=== PATIENT | female | born 1995 | race Hispanic/Latino ===

== ENCOUNTER 2021-08-22 02:18 | Emergency (ER) | payer SELFPAY ==
[~2021-08-22] VITALS: Ht 154.9 cm; Wt 131.5 kg
[2021-08-22 04:21] LABS: BASOPHILS % (AUTO) 0.5 % (0.0-5.0); EOSINOPHILS % (AUTO) 0.7 % (0.0-8.0); HEMATOCRIT 46.1 % (36-48); LYMPHOCYTES % (AUTO) 19.1 % (21.0-51.0); MEAN CORPUSCULAR HEMOGLOBIN 26.4 pg (27.0-33.0); MEAN CORPUSCULAR HGB CONC 31.7 g/dL (32.0-36.0); MEAN CORPUSCULAR VOLUME 83.5 fL (79-99); MONOCYTES % (AUTO) 7.5 % (3.0-13.0); NEUTROPHILS % (AUTO) 71.7 % (40.0-77.0); PLATELET COUNT (AUTO) 352 K/uL (130-400); RED BLOOD CELL COUNT(AUTO) 5.52 MIL/uL (4.00-5.50); RED CELL DISTRIBUTION WIDTH 13.9 % (11.0-15.5); WHITE BLOOD COUNT (AUTO) 9.9 K/uL (4.8-10.8)
[2021-08-22 04:24] LABS: APPEARANCE,URINE Turbid (CLEAR); BILIRUBIN,URINE Negative (NEGATIVE); COLOR,URINE Yellow (YELLOW); GLUCOSE, URINE (UA) Negative (NEGATIVE); KETONES,URINE Negative (NEGATIVE); LEUKOCYTE ESTERASE ,URINE Trace (NEGATIVE); NITRATE,URINE Negative (NEGATIVE); OCCULT BLOOD,URINE Negative (NEGATIVE); PH,URINE 8.5 (5.0-8.0); PROTEIN,URINE Trace mg/dL (NEGATIVE)
[2021-08-22 04:26] LABS: CREATININE 0.8 mg/dL (0.5-1.5); POTASSIUM 3.7 mmol/L (3.5-5.1)
[2021-08-22 04:30] LABS: BILIRUBIN,TOTAL 1.1 mg/dL (0.2-1.0); TOTAL PROTEIN, SERUM 8.2 g/dL (6.0-8.3)
[2021-08-22 04:34] LABS: RBC,URINE None Seen /HPF (0-1); WBC,URINE None Seen /HPF (0-1)
[2021-08-22 04:35] LABS: AMORPHOUS SEDIMENT,UR Many /LPF (None Seen); BACTERIA,URINE None Seen /HPF (None Seen); SQUAMOUS EPITHELIAL CELL,UR None Seen /HPF (0-2)
[2021-08-22] MEDS ORDERED: MORPHINE 2 MG SYG ONE (06:41)
[2021-08-22] MEDS ORDERED: ONDANSETRON 4MG INJ ONE (06:41)
[2021-08-22] MEDS ORDERED: ONDANSETRON 4MG INJ IVP ONE (07:00)
[2021-08-22] MEDS ORDERED: MORPHINE 2 MG SYG IVP ONE (07:00)
[2021-08-22 09:05] VITALS: BP 121/60
[2021-08-22] MEDS ORDERED: ONDA4TAB4 PO (09:42)
[2021-08-22] MEDS ORDERED: HYDR-4377 PO (09:42)
[2021-08-22] MEDS ORDERED: HYDR-4068 PO (11:51)
[2021-08-22] MEDS ORDERED: HYDR-4060 PO (11:51)
== END 2021-08-22 10:31 | disposition home or self-care (01) ==
LOC: EDH 02:18
DX: R10.11 Right upper quadrant pain (principal); R11.10 Vomiting, unspecified
CPT/HCPCS: 36415; 76705; 80053; 81001; 81025; 85025; 96374; 96375; 99284; J2405

== ENCOUNTER 2022-02-19 15:10 | Emergency (ER) | payer SELFPAY ==
[~2022-02-19] VITALS: Ht 167.6 cm; Wt 119.7 kg
[~2022-02-19 15:10] MED LIST: HYDR-4068 PO; HYDR-4377 PO; ONDA4TAB4 PO
[2022-02-19 15:40] LABS: BASOPHILS % (AUTO) 0.7 % (0.0-5.0); EOSINOPHILS % (AUTO) 2.2 % (0.0-8.0); HEMATOCRIT 46.9 % (36-48); LYMPHOCYTES % (AUTO) 40.7 % (21.0-51.0); MEAN CORPUSCULAR HEMOGLOBIN 26.7 pg (27.0-33.0); MEAN CORPUSCULAR HGB CONC 32.2 g/dL (32.0-36.0); MEAN CORPUSCULAR VOLUME 82.9 fL (79-99); MONOCYTES % (AUTO) 6.9 % (3.0-13.0); NEUTROPHILS % (AUTO) 49.1 % (40.0-77.0); PLATELET COUNT (AUTO) 337 K/uL (130-400); RED BLOOD CELL COUNT(AUTO) 5.66 MIL/uL (4.00-5.50); RED CELL DISTRIBUTION WIDTH 13.9 % (11.0-15.5); WHITE BLOOD COUNT (AUTO) 10.7 K/uL (4.8-10.8)
[2022-02-19 15:48] LABS: CREATININE 0.9 mg/dL (0.5-1.5); POTASSIUM 3.7 mmol/L (3.5-5.1)
[2022-02-19 15:53] LABS: ALBUMIN 3.5 g/dL (3.5-5.0); BILIRUBIN,TOTAL 0.2 mg/dL (0.2-1.0); TOTAL PROTEIN, SERUM 7.6 g/dL (6.0-8.3)
[2022-02-19 16:45] LABS: HCG,QUAL RESULT NEGATIVE (NEGATIVE)
[2022-02-19 16:49] LABS: APPEARANCE,URINE SL CLOUDY (CLEAR); BILIRUBIN,URINE NEGATIVE (NEGATIVE); COLOR,URINE YELLOW (YELLOW); GLUCOSE, URINE (UA) NEGATIVE (NEGATIVE); KETONES,URINE 5 mg/dL (NEGATIVE); LEUKOCYTE ESTERASE ,URINE TRACE (NEGATIVE); NITRATE,URINE NEGATIVE (NEGATIVE); OCCULT BLOOD,URINE NEGATIVE (NEGATIVE); PH,URINE 5.5 (5.0-8.0); PROTEIN,URINE NEGATIVE (NEGATIVE); UROBILINOGEN,URINE 0.2 mg/dL (0.2-1.0)
[2022-02-19 16:50] LABS: BACTERIA,URINE Few /HPF (None Seen); RBC,URINE None Seen /HPF (0-1)
[2022-02-19] MEDS ORDERED: MORPHINE 4 MG SYG IVP ONE (18:00)
[2022-02-19] MEDS ORDERED: KETOROLAC 15MG/ML VIAL (15MG/ML) IV ONE (18:00)
[2022-02-19] MEDS ORDERED: 0.9%NACL 1000ML 1,000 ML IV ONE (18:00)
[2022-02-19] MEDS ORDERED: ONDANSETRON 4MG INJ IVP ONE (18:00)
[2022-02-19] MEDS ORDERED: NAPR500T6 PO (20:18)
[2022-02-19] MEDS ORDERED: ONDA4TAB10 PO (20:18)
[2022-02-19 20:37] VITALS: BP 116/68
== END 2022-02-19 20:41 | disposition home or self-care (01) ==
LOC: EDH 15:10
DX: K80.20 Calculus of gallbladder without cholecystitis without obstruction (principal)
CPT/HCPCS: 36415; 76705; 80053; 81001; 81025; 83690; 85025; 96361; 96374; 96375; 99284; J1885; J2270; J2405; J7030